=== PATIENT | female | born 1965 | race Caucasian/White ===

== ENCOUNTER → 2016-07-29 | Outpatient (CLI) | payer BC ==
[~2016-07-29] MED LIST: CIPROFLOXACIN500 MG PO; FLAGYL 500MG.500 MG PO; HYOSCYAMINE0.125 MG PO; MULTI VITAMINS1 TA1 PO; VITAMIN D31000 IU PO; ZOFRAN4 MG PO
--- NOTE | 2016-07-29 16:18 | RADIOLOGY REPORT PS360 ---
CHEST(2 VIEWS-NOT PORTABLE) HISTORY: HTN,PALPITATIONS,TOBACCO USE,ABN CXR ORDERING PHYSICIAN: Kenyon Fernández MD PATIENT AGE: 51 years COMPARISON: 05/25/2015 FINDINGS: The cardiomediastinal silhouette and pulmonary vascularity are within normal limits. There is hyperinflation with attenuation of the peripheral pulmonary vessels consistent with COPD. Biapical pleural thickening is noted as before. No lobar consolidation or collapse. There is moderate mid thoracic curvature convex right.. No acute bony abnormalities. IMPRESSION: COPD with biapical fibrotic changes. No change with no acute finding
== END ==
LOC: RAD 14:52
DX: R00.2 Palpitations (principal); I10 Essential (primary) hypertension; Z72.0 Tobacco use; R93.8 Abnormal findings on diagnostic imaging of other specified body structures

== ENCOUNTER 2016-10-03 09:57 | Day surgery (SDC) | payer BC ==
--- NOTE | 2016-10-03 11:35 | Operative Note ---
Upper GI Endoscopy Procedure date: 10/03/16 Date of : [birth year] Procedure:Upper GI Endoscopy Esophagogastroduodenoscopy with cold biopsies Indications: Mrs. Anderson is a 51-year-old female who is here for diagnostic upper endoscopy. She has had dyspepsia with midepigastric abdominal pain. She does report reflux and some heartburn. She has had early satiety, bloating, burping and occasional nausea. She has had some chest pressure but does report mitral valve prolapse. She does have some globus sensation. She does feel that stress may play a role. Her symptoms were worsened in July 2016. Her CAT scan at that time was unremarkable. She reports no dysphagia. She does have irregular bowel function with both constipation and diarrhea. She has had no prior colonoscopy. Performing Provider: Ji Carbajal MD Referring Provider: Blake Hampton M.D./Guadalupe SNIDER Sedation: Fentanyl 100 mg IV/Versed 4 mg IV Procedure: Prior to the procedure, a history and physical exam was performed, and patients medications and allergies were reviewed. The risks and benefits of the procedure and the sedation options and risks were discussed with the patient. All questions were answered and informed consent was obtained. The patient was brought to the procedure room. Patient identification and proposed procedure were verified by the physician and the nurse. The patient was placed in a left lateral decubitus position and the scope was passed under direct vision. Throughout the procedure, the patient's blood pressure, pulse, and oxygen saturations were monitored continuously. The endoscope was introduced through the mouth, and advanced to the second part of duodenum. The upper GI endoscopy was accomplished without difficulty. The patient tolerated the procedure well. Findings: The scope was passed directly into the upper esophagus and advanced to the third portion of the duodenum. The post bulbar duodenum and duodenal bulb were normal with normal mucosa and conniventes. 4 biopsies were taken from the post bulbar duodenum to rule out celiac disease. The scope was withdrawn through a normal duodenal bulb and pylorus into the stomach. There was some bile reflux with linear erythema of the antrum and body of the stomach consistent with linear reactive gastritis. The remainder of the antrum, body and fundus of the stomach were grossly normal. Upon retroflexion there was a small 1-2 cm hiatal hernia. 2 biopsies were taken in the antrum and along the lesser curvature for histology and/or CLOtest. The scope was then withdrawn into the esophagus. There was a serrated Z line. There was no evidence of reflux esophagitis or Oliver's. Biopsies were taken at the GE junction rule out intestinal metaplasia. The remainder of the esophageal mucosa was normal. Immediate complications: None EBL (ml): 0 Impression: 1. Nonerosive gastroesophageal reflux disease with mild esophageal dysmotility and very small sliding hiatal hernia 2. Bile reflux with mild linear reactive gastritis Recommendations: I will follow-up the biopsies. I do feel that the patient has optional dyspepsia and functional bowel disease. We will discuss additional dietary measures and treatment options. I would recommend colonoscopy based upon clinical symptoms, age and endoscopic findings. at [phone]
[2016-10-03 14:41] VITALS: BP 95/53
== END 2016-10-03 12:25 | disposition home or self-care (01) ==
LOC: SDC 09:57
PROVIDERS: Internal Medicine Gastroenterology
PROC: 0DB78ZX Excision of Stomach, Pylorus, Via Natural or Artificial Opening Endoscopic, Diagnostic (ICD-10-PCS; 2016-10-03)
PROC: 0DB98ZX Excision of Duodenum, Via Natural or Artificial Opening Endoscopic, Diagnostic (ICD-10-PCS; principal; 2016-10-03 11:00)
DX: K21.9 Gastro-esophageal reflux disease without esophagitis (principal); K44.9 Diaphragmatic hernia without obstruction or gangrene; K29.60 Other gastritis without bleeding

== ENCOUNTER → 2017-01-30 | Outpatient (CLI) | payer BC ==
[2017-01-30 07:50] LABS: HEMOGLOBIN 15.7 g/dL (12.2-16.2); LYMPH % 30.7 % (10-50.0)
[2017-01-30 09:56] LABS: BILIRUBIN, INDIRECT 0.34 mg/dL (0-0.9); BUN 14 mg/dL (7-18)
[2017-01-30 09:58] LABS: GFR (ESTIMATED) 76 ML/MIN (59-)
== END ==
LOC: LAB 07:26
PROVIDERS: Internal Medicine
DX: I49.3 Ventricular premature depolarization (principal); I34.0 Nonrheumatic mitral (valve) insufficiency; I10 Essential (primary) hypertension; Z72.0 Tobacco use

== ENCOUNTER → 2017-01-31 | Outpatient (CLI) | payer BC ==
--- NOTE | 2017-02-01 05:41 | RADIOLOGY REPORT PS360 ---
PROCEDURE: 2-D M-mode and color Doppler study INDICATIONS FOR THE TEST: Chest pain COPD Heart Murmur Tobacco SmokingX Palpitations Fatigue Syncope Edema HypertensionXDiabetes Mellitus Rheumatic Fever SOB CONTRERAS Obesity Hyperlipidemia Family History HD Additional History ABN EKG TACHYCARDIA MVP PATIENT INFORMATION HEIGHT: 68 WEIGHT:140 GENDER: Female B/P:110/70 2-D/M-MODE INTERPRETATION: 2-D MEASUREMENTS OBSERVED VALUES IN CMS Right Ventricular Dimension (RVDd) 1.9 Interventricular Septum (Thickness)(IVsd) .8 Left Ventricular Internal Dimensions(LVIDd) 4.5 Left Ventricular Posterior Wall (Thickness)(LVPWd) .6 Aortic Root 2.8 Aortic Cusp Separation 2.0 Left Atrial Dimensions (LAD) 2.8 2D 1. Left atrium is qualitatively mildly enlarged, left ventricle is normal size, there is no concentric left ventricular hypertrophy, visually estimated ejection fraction of 55% with no obvious regional wall motion abnormality. 2. The right atrium and right ventricle is normal size and contractility. 3. The aortic valve is minimally thickened and fibrosed. 4. The mitral valve leaflets are thickened, there is mild doming of the anterior mitral leaflet, raising the concern is for presence of rheumatic mitral valve disease, however there is no significant restriction in the leaflet mobility. 5. The tricuspid valve is grossly normal. 6. The pulmonic valve is poorly visualized. 7. No significant pericardial effusion noted. DOPPLER INTERROGATION: Doppler interrogation of the aortic, mitral and tricuspid valve reveals presence of mild mitral and tricuspid regurgitation, calculated right ventricular systolic pressure is 38 mmHg consistent with mild pulmonary hypertension, grade 1 diastolic dysfunction seen without tissue Doppler evidence of raised left atrial pressure. CONCLUSION: 1. Mildly left atrium, normal left ventricular size, preserved left ventricular systolic function, visually estimated ejection fraction 55% with no obvious regional wall motion abnormality. Grade 1 diastolic dysfunction seen without tissue Doppler evidence of raised left atrial pressure. 2. Morphologically abnormal mitral valve, however there is no mitral stenosis, there is mild mitral regurgitation. 3. Mild tricuspid regurgitation, calculated right ventricular systolic pressure 38 mmHg consistent with mild pulmonary hypertension. 4. No significant pericardial effusion noted.
== END ==
LOC: RT 15:00
DX: I49.3 Ventricular premature depolarization (principal); I34.0 Nonrheumatic mitral (valve) insufficiency; I10 Essential (primary) hypertension; Z72.0 Tobacco use

== ENCOUNTER → 2017-03-23 | Outpatient (CLI) | payer BC ==
--- NOTE | 2017-03-24 15:24 | RADIOLOGY REPORT PS360 ---
EXAM: LUMBAR SPINE 5 VIEWS HISTORY: Low back pain LBP ORDERING PHYSICIAN: Cinda Saldivar MD PATIENT AGE: 52 years COMPARISON: None FINDINGS: There is minimal lumbar curvature convex left. No fracture or dislocation. Mild facet arthritic changes are present at L4-L5 and L5-S1. There is approximately 1 cm anterolisthesis of L5 on S1. There is bilateral pars defect at L5-S1 with mild degenerative disc disease at L3-L4 L4-5 and L5-S1. There is generalized vascular calcification. IMPRESSION: 1. Grade 1 spondylitic spondylolisthesis of L5 on S1. 2. Facet arthritic changes L4-L5 and L5-S1. 3. Mild degenerative disc disease L3-S1
== END ==
LOC: RAD 16:21
DX: M54.5 Low back pain (principal); R10.2 Pelvic and perineal pain

== ENCOUNTER → 2017-03-24 | Outpatient (CLI) | payer BC | LOC: RAD 12:03 | DX: M54.5 Low back pain (principal) ==

== ENCOUNTER → 2017-03-28 | Outpatient (CLI) | payer BC ==
--- NOTE | 2017-04-03 09:44 | RADIOLOGY REPORT PS360 ---
PELVIS, AP SINGLE VIEW CLINICAL INDICATION: Left-sided pain ORDERING PHYSICIAN: Cinda Saldivar MD PATIENT AGE: 52 years COMPARISON: None FINDINGS: No fracture or dislocation. No lytic or blastic change. No significant degenerative change. IMPRESSION: Negative pelvis
== END ==
LOC: RAD 14:45
DX: M54.5 Low back pain (principal)

== ENCOUNTER → 2017-04-03 | Outpatient (CLI) | payer BC ==
--- NOTE | 2017-04-07 15:12 | RADIOLOGY REPORT PS360 ---
DIG MAMM-SCREEN ROSANA W/CAD CAD Screening COMPARISON: Digital mammograms 03/29/2016 and 03/24/2015 INDICATION: There is a history of breast cancer patient's mother diagnosed after menopause. TECHNIQUE: Standard CC and MLO images were obtained. R2 CAD reviewed. FINDINGS: There is a diffusely dense and heterogenic parenchymal pattern lessening the sensitivity of mammography. The findings are bilateral and symmetrical. There are couple benign-appearing calcination is right breast. There is no suspicious lesion and there are no suspicious microcalcifications. IMPRESSION: Diffusely dense parenchymal pattern with no suspicious lesion seen recommend yearly follow-up BI-RADS CATEGORY: 2_Benign RECOMMENDED FOLLOWUP: 12M 12 MONTH FOLLOW-UP (A letter has been sent to the patient regarding results of the study.)
== END ==
LOC: RAD 10:26
DX: Z12.31 Encounter for screening mammogram for malignant neoplasm of breast (principal)
CPT/HCPCS: G0202

== ENCOUNTER → 2017-04-12 | Outpatient (CLI) | payer BC ==
--- NOTE | 2017-04-13 06:21 | RADIOLOGY REPORT PS360 ---
CT ABD PELVIS W/ CONTRAST CLINICAL INDICATION: Left lower quadrant pain, left flank pain BACK PAIN ORDERING PHYSICIAN: Clementine Ballesteros APRN PATIENT AGE: 52 years COMPARISON: 08/04/2016 TECHNIQUE: Axial images obtained with sagittal and coronal reformats. PROCEDURE: Oral Contrast: Redicat IV Contrast: 75 mL Isovue-[id number] . FINDINGS: The lung bases are clear. There is mild lumbar scoliosis convex left and thoracic scoliosis convex right. The liver, spleen, adrenal glands, and pancreas are unremarkable. There has been prior cholecystectomy without excessive biliary dilatation. No renal calculi, renal mass, hydronephrosis, or ureteral calculi are evident. No evidence of appendicitis, diverticulitis, intestinal obstruction, or free air. Calcification noted within the aortoiliac vessels. A 1.8 cm right ovarian cyst. A 2 cm fibroid once again noted projecting off the posterior aspect of the body the uterus. There is grade 1 spondylolytic spondylolisthesis of L5 on S1 with mild degenerative disc disease at that level. No acute fracture or dislocation. IMPRESSION: 1. No acute abdominal or pelvic findings. 2. 1.8 cm right ovarian cyst. 3. No change 2 cm uterine fibroid. 4. Grade 1 spondylolytic spondylolisthesis of L5 on S1 not significantly changed
== END ==
LOC: RAD 10:15
DX: M54.9 Dorsalgia, unspecified (principal)
CPT/HCPCS: Q9967

== ENCOUNTER → 2017-04-25 | Outpatient (CLI) | payer BC ==
[~2017-04-25] MED LIST changes: +ADULT LOW DOSE81 MG PO; +ATENOLOL25 MG PO
--- NOTE | 2017-04-25 16:23 | RADIOLOGY REPORT PS360 ---
US PELVIS-TRANSVAGINAL ONLY HISTORY: OVARIAN CYST,UTERINE LEIOMYOMA ORDERING PHYSICIAN: Cinda Saldivar MD PATIENT AGE: 52 years COMPARISON: CT scan of 04/12/2017 FINDINGS: The uterus measures 8 x 4 x 4.5 cm with a combined endometrial thickness of 8 mm. There is a fibroid along the fundus of the uterus posteriorly measuring 2.5 x 1.9 cm. This is not significant change from a previous ultrasound of 04/09/2014. The right ovary is 2.8 x 1.4 cm and contains a 6 mm cyst. The left ovary is 3 x 2 cm and contains a 1.5 cm cyst. No cul-de-sac fluid evident. IMPRESSION: 1. Overall no change in the uterine fundal fibroid. 2. Small bilateral ovarian follicles.
== END ==
LOC: RAD 15:07
DX: N83.209 Unspecified ovarian cyst, unspecified side (principal); D25.9 Leiomyoma of uterus, unspecified

== ENCOUNTER → 2017-04-26 | Outpatient (CLI) | payer BC ==
--- NOTE | 2017-04-26 16:50 | RADIOLOGY REPORT PS360 ---
ARTERIAL/[id number]-UGO LEG PAIN, smoker, hypertension ORDERING PHYSICIAN: Kenyon Fernández MD PATIENT AGE: 52 years TECHNIQUE: Segmental pressures obtained of both right and left leg. These are compared to brachial blood pressure to yield index at each level sampled including summary [place]. The data sheets from the procedure are available in PACS FINDINGS Rest study only performed today No prior studies available for comparison. Blood pressures reported are in millimeters mercury. RIGHT LEG [place] = 1.1. Brachial BP: 126 Thigh BP: 129 Calf BP: 135 Ankle PT: 139 Ankle DP : 119 Digit =93 LEFT LEG [place] = 1.1 Brachial BPD: 121 Thigh BP: 128 Calf BP: 134 Ankle PT:144 Ankle DP: 127 Digit = 111 Pulses and waveforms: Normal IMPRESSION: The ABIs as reported above are within normal limits. Waveforms and pulses are also unremarkable.
== END ==
LOC: RT 13:33
DX: M79.604 Pain in right leg (principal); M79.605 Pain in left leg; I73.9 Peripheral vascular disease, unspecified; I34.0 Nonrheumatic mitral (valve) insufficiency; I34.1 Nonrheumatic mitral (valve) prolapse; R93.5 Abnormal findings on diagnostic imaging of other abdominal regions, including retroperitoneum; Z72.0 Tobacco use